=== PATIENT | male | born 1960 | race Caucasian/White ===

== ENCOUNTER 2016-05-15 10:25 | Emergency (ER) | payer MEDICARE, OTHER ==
[~2016-05-15] VITALS: Ht 177.8 cm; Wt 90.9 kg
[~2016-05-15 10:25] MED LIST: ALBUTEROL0.83 MG/ML IH; AMOXICILLIN 8751 TAB PO; ATIVAN 0.50.5 MG/TAB PO; ATIVAN0.5 MG PO; BACTRIM DS 8001 TAB PO; BUPROBAN150 MG PO; CITALOPRAM10 MG PO; CITALOPRAM40 MG PO; CLEOCIN HCL300 MG PO; DEPAKOTE DR500 MG PO; DOCUSATE100 MG PO; EC NAPROSYN500 MG PO; EFFEXOR-XR150 MG PO; FUROSEMIDE20 MG PO; GABAPENTIN400 MG PO; INDERAL 20MG20 MG PO; LEVAQUIN 5500 MG/TA1 PO; METHADONE H10 MG/TAB PO; MINIPRESS2 MG PO; NEURONTIN400 MG/CAP PO; NORCO 325 MG-51 TAB PO; OMEPRAZOLE20 MG PO; PROPRANOLOL10 MG PO; QUETIAPINE FUM100 MG PO; SEROQUEL 200MG200 MG PO; SEROQUEL400 MG PO; SIMVASTATIN20 MG PO; UNABLE; ZOCOR 40MG40 MG PO; [UNRECOGNIZED DRUG - REMARK]
[2016-05-15 10:40] VITALS: BP 124/88; TEMP 97.8
[2016-05-15 11:42] VITALS: PULSE 66
== END 2016-05-15 11:43 | disposition home or self-care (01) ==
LOC: COL.ER 10:25
DX: S92.515A Nondisplaced fracture of proximal phalanx of left lesser toe(s), initial encounter for closed fracture (principal); W22.8XXA Striking against or struck by other objects, initial encounter; Y92.003 Bedroom of unspecified non-institutional (private) residence as the place of occurrence of the external cause; I10 Essential (primary) hypertension

== ENCOUNTER 2017-01-07 07:17 | Emergency (ER) | payer MEDICARE, OTHER ==
[~2017-01-07] VITALS: Ht 177.8 cm; Wt 79.5 kg
[2017-01-07] MEDS ORDERED: DOLOPHINE HCL5 MG PO (07:36)
[2017-01-07] MEDS ORDERED: SEROQUEL 1100 MG/TAB PO (07:38)
[2017-01-07 09:05] VITALS: BP 128/80; PULSE 85; TEMP 97.7
== END 2017-01-07 09:07 | disposition home or self-care (01) ==
LOC: COL.ER 07:17
DX: R20.9 Unspecified disturbances of skin sensation (principal); G89.29 Other chronic pain; M25.552 Pain in left hip; M54.2 Cervicalgia

== ENCOUNTER → 2017-02-22 | Outpatient (CLI) | payer OTHER, MEDICARE ==
[~2017-02-22] MED LIST changes: +DOLOPHINE HCL5 MG PO; +SEROQUEL 1100 MG/TAB PO
== END ==
LOC: BHSO 13:36
DX: F43.10 Post-traumatic stress disorder, unspecified (principal)

== ENCOUNTER → 2017-03-23 | Outpatient (CLI) | payer OTHER, MEDICARE | LOC: BHSO 11:06 | DX: F43.10 Post-traumatic stress disorder, unspecified (principal) ==

== ENCOUNTER → 2017-03-30 | Outpatient (CLI) | payer OTHER, MEDICARE | LOC: BHSO 12:26 | DX: F43.10 Post-traumatic stress disorder, unspecified (principal) ==

== ENCOUNTER → 2017-04-03 | Outpatient (CLI) | payer OTHER, MEDICARE | LOC: BHSO 12:41 | DX: F43.10 Post-traumatic stress disorder, unspecified (principal) ==

== ENCOUNTER → 2017-04-13 | Outpatient (CLI) | payer OTHER, MEDICARE | LOC: BHSO 12:08 | DX: F43.10 Post-traumatic stress disorder, unspecified (principal) ==

== ENCOUNTER → 2017-05-04 | Outpatient (CLI) | payer OTHER, MEDICARE | LOC: BHSO 10:54 | DX: F43.10 Post-traumatic stress disorder, unspecified (principal) ==

== ENCOUNTER 2017-05-17 12:30 | Outpatient (RCR) | payer OTHER, MEDICARE | END 2017-05-18 14:05 | disposition home or self-care (01) | LOC: WSPT 12:30 | DX: M47.817 Spondylosis without myelopathy or radiculopathy, lumbosacral region (principal) | CPT/HCPCS: G8978-GP; G8979-GP; G8980-GP ==

== ENCOUNTER → 2017-05-18 | Outpatient (CLI) | payer OTHER, MEDICARE | LOC: BHSO 10:43 | DX: F43.10 Post-traumatic stress disorder, unspecified (principal) ==

== ENCOUNTER → 2017-06-01 | Outpatient (CLI) | payer OTHER, MEDICARE | LOC: BHSO 11:12 | DX: F43.10 Post-traumatic stress disorder, unspecified (principal) ==

== ENCOUNTER → 2017-06-15 | Outpatient (CLI) | payer OTHER, MEDICARE | LOC: BHSO 10:43 | DX: F43.10 Post-traumatic stress disorder, unspecified (principal) ==

== ENCOUNTER → 2017-06-29 | Outpatient (CLI) | payer MEDICARE, OTHER | LOC: BHSO 10:25 | DX: F43.10 Post-traumatic stress disorder, unspecified (principal) ==

== ENCOUNTER → 2017-07-13 | Outpatient (CLI) | payer MEDICARE, OTHER | LOC: BHSO 09:51 | DX: F43.10 Post-traumatic stress disorder, unspecified (principal) ==

== ENCOUNTER → 2017-08-24 | Outpatient (CLI) | payer MEDICARE, OTHER | LOC: BHSO 10:38 | DX: F43.10 Post-traumatic stress disorder, unspecified (principal) ==

== ENCOUNTER → 2017-08-31 | Emergency (ER) | payer MEDICARE, OTHER ==
[~2017-08-31] VITALS: Ht 177.8 cm; Wt 75.5 kg
[2017-08-31 17:55] VITALS: BP 143/74; PULSE 79; TEMP 98.7
== END ==
LOC: COL.ER 16:26
DX: S01.81XA Laceration without foreign body of other part of head, initial encounter (principal); S63.502A Unspecified sprain of left wrist, initial encounter; S63.92XA Sprain of unspecified part of left wrist and hand, initial encounter; F17.210 Nicotine dependence, cigarettes, uncomplicated; W10.9XXA Fall (on) (from) unspecified stairs and steps, initial encounter; X50.0XXA Overexertion from strenuous movement or load, initial encounter; Y92.009 Unspecified place in unspecified non-institutional (private) residence as the place of occurrence of the external cause

== ENCOUNTER → 2017-09-21 | Outpatient (CLI) | payer MEDICARE, OTHER | LOC: BHSO 09:23 | DX: F43.10 Post-traumatic stress disorder, unspecified (principal) ==

== ENCOUNTER → 2017-11-02 | Outpatient (CLI) | payer MEDICARE, OTHER | LOC: BHSO 10:38 | DX: F43.10 Post-traumatic stress disorder, unspecified (principal) ==

== ENCOUNTER → 2017-11-23 | Outpatient (CLI) | payer MEDICARE, OTHER | LOC: BHSO 13:47 | DX: F43.10 Post-traumatic stress disorder, unspecified (principal) ==

== ENCOUNTER → 2017-12-07 | Outpatient (CLI) | payer MEDICARE, OTHER | LOC: BHSO 12:57 | DX: F31.10 Bipolar disorder, current episode manic without psychotic features, unspecified (principal) ==

== ENCOUNTER 2018-03-01 13:03 | Emergency (ER) | payer MEDICARE, OTHER ==
[~2018-03-01] VITALS: Ht 182.9 cm; Wt 72.7 kg
[2018-03-01 13:10] VITALS: TEMP 97.4
[2018-03-01 13:46] LABS: BASO % 0.2 % (0.0-2.0); EOS # 0.1 (0.0-0.7); EOS % 1.5 % (0-4.0); GRAN # 7.2 (1.4-6.5); GRAN % 75.6 % (42.2-75.2); HEMOGLOBIN 12.2 g/dl (13.5-18.0); LYMPH % 10.2 % (20.0-51.0); MEAN CELL VOLUME 85 fl (80.0-100.0); MEAN CORPUSCULAR HEMOGLOBIN 28 pg (27.0-31.0); MEAN CORPUSCULAR HGB CONC 33 g/dl (33.0-37.0); MEAN PLATELET VOLUME 9.6 fl (7.4-10.4); MONO # 1.2 (0.1-0.6); MONO % 12.3 % (1.7-9.3); PLATELET COUNT 169 K/mm3 (130-400); RED BLOOD COUNT 4.31 M/mm3 (4.20-5.60); REDCELL DISTRIBUTION WIDTH-CV 13.1 % (11.5-14.5)
[2018-03-01 13:48] LABS: HEMATOCRIT 36.7 % (42.0-52.0)
[2018-03-01 13:56] LABS: ALANINE AMINOTRANSFERASE 31 U/L (21-72); ALBUMIN 3.9 gm/dL (3.5-5.0); ALKALINE PHOSPHATASE 69 U/L (50-136); ANION GAP 8 mmol/L (7-16); AST,SGOT 19 U/L (15-37); BILIRUBIN,TOTAL 0.6 mg/dL (0.0-1.0); BLOOD UREA NITROGEN 23 mg/dL (9-20); C-REACTIVE PROTEIN 3.7 mg/dL (0.0-0.9); CALCIUM 8.9 mg/dL (8.4-10.2); CARBON DIOXIDE 26 mmol/L (22-30); CHLORIDE 103 mmol/L (98-107); CREATININE, serum 1.18 mg/dL (0.66-1.25); GLUCOSE 99 mg/dL (74-106); POTASSIUM 4.1 mmol/L (3.4-5.0); SODIUM 137 mmol/L (137-145); TOTAL PROTEIN 7.1 gm/dL (6.4-8.2)
[2018-03-01 14:12] LABS: TROPONIN-I < 0.012 ng/mL (0.000-0.034)
[2018-03-01] MEDS ORDERED: PREDNISONE20 MG PO (14:35)
[2018-03-01] MEDS ORDERED: ZITHROMAX Z PA250 MG PO (14:35)
[2018-03-01 14:58] VITALS: BP 134/47; PULSE 71
== END 2018-03-01 15:00 | disposition home or self-care (01) ==
LOC: COL.ER 13:03
PROVIDERS: Physician Assistant
DX: J44.1 Chronic obstructive pulmonary disease with (acute) exacerbation (principal); E78.5 Hyperlipidemia, unspecified; F17.210 Nicotine dependence, cigarettes, uncomplicated; Z98.52 Vasectomy status
CPT/HCPCS: J7512

== ENCOUNTER → 2018-04-15 | Outpatient (CLI) | payer MEDICARE, OTHER ==
[~2018-04-15] MED LIST changes: +PREDNISONE20 MG PO; +ZITHROMAX Z PA250 MG PO
== END ==
LOC: BHSO 13:47
DX: F43.10 Post-traumatic stress disorder, unspecified (principal)

== ENCOUNTER → 2018-05-15 | Outpatient (CLI) | payer MEDICARE, OTHER | LOC: BHSO 09:33 | DX: F43.10 Post-traumatic stress disorder, unspecified (principal) ==

== ENCOUNTER → 2018-05-24 | Outpatient (CLI) | payer MEDICARE, OTHER | LOC: BHSO 10:02 | DX: F43.10 Post-traumatic stress disorder, unspecified (principal) ==

== ENCOUNTER → 2018-06-07 | Outpatient (CLI) | payer MEDICARE, OTHER | LOC: BHSO 09:56 | DX: F43.10 Post-traumatic stress disorder, unspecified (principal) ==

== ENCOUNTER → 2018-06-21 | Outpatient (CLI) | payer MEDICARE, OTHER | LOC: BHSO 10:00 | DX: F43.10 Post-traumatic stress disorder, unspecified (principal) ==

== ENCOUNTER → 2018-07-04 | Outpatient (CLI) | payer MEDICARE, OTHER | LOC: BHSO 11:00 | DX: F43.10 Post-traumatic stress disorder, unspecified (principal) ==

== ENCOUNTER 2018-12-11 09:15 | Outpatient (RCR) | payer OTHER | END 2018-12-15 | disposition still patient (30) | LOC: WSC | DX: M54.5 Low back pain (principal) ==

== ENCOUNTER 2019-03-10 12:53 | Emergency (ER) | payer OTHER ==
[~2019-03-10] VITALS: Ht 180.3 cm; Wt 75.0 kg
[2019-03-10] MEDS ORDERED: LIDODERM 5% PATC1 EA TP (13:47)
[2019-03-10] MEDS ORDERED: NORCO 325 MG-51 TAB PO (13:47)
[2019-03-10 14:02] VITALS: BP 115/67; PULSE 66; TEMP 98.1
== END 2019-03-10 14:28 | disposition home or self-care (01) ==
LOC: COL.ER 12:53
DX: S29.9XXA Unspecified injury of thorax, initial encounter (principal); F17.210 Nicotine dependence, cigarettes, uncomplicated; W18.39XA Other fall on same level, initial encounter; Y92.009 Unspecified place in unspecified non-institutional (private) residence as the place of occurrence of the external cause
CPT/HCPCS: A9284

== ENCOUNTER → 2019-04-24 | Outpatient (CLI) | payer MEDICARE, OTHER ==
[~2019-04-24] MED LIST changes: +LIDODERM 5% PATC1 EA TP
[2019-04-24 09:03] LABS: MAGNESIUM 2.2 mg/dL (1.6-2.3)
[2019-04-24 09:36] LABS: THYROID STIMULATING HORMONE 2.15 uIU/mL (0.465-4.680)
[2019-04-25 00:05] LABS: FOLATE (FOLIC ACID) 15.5 ng/mL (7.0-31.4)
[2019-04-25 21:19] LABS: ANA SCREEN with REFLEX Positive (Negative)
[2019-04-26 11:01] LABS: LYME DISEASE ANTIBODIES Negative (Negative)
== END ==
LOC: COL.LAB 08:18
PROVIDERS: Family Medicine
DX: E61.1 Iron deficiency (principal); G62.9 Polyneuropathy, unspecified; E55.9 Vitamin D deficiency, unspecified; R73.02 Impaired glucose tolerance (oral); E53.9 Vitamin B deficiency, unspecified; E53.1 Pyridoxine deficiency; E53.8 Deficiency of other specified B group vitamins; E61.2 Magnesium deficiency

== ENCOUNTER 2019-04-28 07:59 | Day surgery (SDC) | payer MEDICARE, OTHER ==
[2019-04-28] VITALS (12 sets, daily range): BP systolic 101–127; BP diastolic 55–87; PULSE 61–69; TEMP 97.9
[~2019-04-28] VITALS: Ht 177.8 cm; Wt 79.1 kg
[~2019-04-28 07:59] MED LIST changes: -BUPROBAN150 MG PO; -FUROSEMIDE20 MG PO; +LASIX 20MG TABL20 MG PO; -OMEPRAZOLE20 MG PO; +PRILOSEC 20MG20 MG PO; +WELLBUTRIN XL300 M1 PO
[2019-04-28 09:11] LABS: HEMATOCRIT 36.1 % (42.0-52.0); HEMOGLOBIN 11.9 g/dl (13.5-18.0); MEAN CELL VOLUME 85 fl (80.0-100.0); MEAN CORPUSCULAR HEMOGLOBIN 28 pg (27.0-31.0); MEAN CORPUSCULAR HGB CONC 33 g/dl (33.0-37.0); MEAN PLATELET VOLUME 9.8 fl (7.4-10.4); PLATELET COUNT 167 K/mm3 (130-400); RED BLOOD COUNT 4.23 M/mm3 (4.20-5.60); REDCELL DISTRIBUTION WIDTH-CV 13.6 % (11.5-14.5)
[2019-04-28 09:18] LABS: CALCIUM 9.5 mg/dL (8.4-10.2); CREATININE, serum 1.03 (0.66-1.25); POTASSIUM 4.5 mmol/L (3.4-5.0)
[2019-04-28 09:21] LABS: INR 0.9 (0.8-3.0)
[2019-04-28 09:24] LABS: PARTIAL THROMBOPLASTIN TIME 32.3 SECONDS (26.0-37.0)
[2019-04-28] MEDS ORDERED: ZYRTEC 10MG10 MG PO (09:42)
[2019-04-28] MEDS ORDERED: FLOMAX 0.40.4 MG/CAP PO (09:42)
[2019-04-28] MEDS ORDERED: COLACE 100100 MG/CAP PO (09:43)
[2019-04-28] MEDS ORDERED: MOBIC15 MG PO (09:44)
[2019-04-28] MEDS ORDERED: FLEXERIL 1010 MG/TAB PO (09:45)
--- NOTE | 2019-04-28 10:13 | NUR ---
SEE MERGE FOR MEDICATION ADMINISTRATION TIME AND INTRA AND POST SEDATION ASSESSMENTS.
--- NOTE | 2019-04-28 11:45 | NUR ---
Report taken from NICO Villanueva in [employer].
--- NOTE | 2019-04-28 11:49 | NUR ---
HAND OFF REPORT GIVEN TO NICO BRADY. DRESSING C/D/I. PT IS ALERT AND ORIENTED. AT BEDSIDE.
[2019-04-28] MEDS ORDERED: PRINIVIL5 MG PO (11:57)
--- NOTE | 2019-04-28 12:45 | NUR ---
Pt tolerated intake with no N/V.
--- NOTE | 2019-04-28 13:15 | NUR ---
Pt voided in urinal with no complications. Gmb=475 mls
--- NOTE | 2019-04-28 15:15 | NUR ---
This RN called Vesna, pt's , and left message encouraging her to return for the discharge instructions.
--- NOTE | 2019-04-28 15:45 | NUR ---
Pt up and ambulating to the bathroom with stand-by assist and cane. Pt voided again without complications.
--- NOTE | 2019-04-28 16:00 | NUR ---
Discharge instructions were reviewed with pt/spouse. Pt/spouse voice understanding. IV was discontinued with catheter tip intact, no phlebitis or infiltration. Pt was discharged via w/c to the care of spouse in private vehicle with discharge instructions in hand.
== END 2019-04-28 16:30 | disposition home or self-care (01) ==
LOC: COL.CAR 07:59
PROVIDERS: Internal Medicine Cardiovascular Disease
DX: R94.39 Abnormal result of other cardiovascular function study (principal); E78.5 Hyperlipidemia, unspecified; F32.9 Major depressive disorder, single episode, unspecified; I42.9 Cardiomyopathy, unspecified; I08.1 Rheumatic disorders of both mitral and tricuspid valves; G47.33 Obstructive sleep apnea (adult) (pediatric); J44.9 Chronic obstructive pulmonary disease, unspecified; K21.9 Gastro-esophageal reflux disease without esophagitis; M19.90 Unspecified osteoarthritis, unspecified site; G89.29 Other chronic pain; F43.10 Post-traumatic stress disorder, unspecified; Z79.51 Long term (current) use of inhaled steroids
CPT/HCPCS: C1760; C1769; C1894; J1644; J2250; J2704; J3010; J7030; Q9967

== ENCOUNTER 2019-05-26 08:37 | Outpatient (CLI) | payer MEDICARE, OTHER ==
[~2019-05-26] VITALS: Ht 177.8 cm; Wt 74.0 kg
[~2019-05-26 08:37] MED LIST changes: +COLACE 100100 MG/CAP PO; +FLEXERIL 1010 MG/TAB PO; +FLOMAX 0.40.4 MG/CAP PO; +MOBIC15 MG PO; +PRINIVIL5 MG PO; +ZYRTEC 10MG10 MG PO
[2019-05-26 09:08] VITALS: BP 109/76; PULSE 64; TEMP 97.1
[2019-05-26] MEDS ORDERED: PRINIVIL10 MG PO (09:28)
[2019-05-26] MEDS ORDERED: ASPIRIN E.C. 8181 MG PO (09:29)
[2019-05-26] MEDS ORDERED: CEPHALEXIN500 M1 PO (10:43)
--- NOTE | 2019-05-26 10:45 | NUR ---
PROCEDURE WAS COMPLETED, DRESSING OVER CENTER OF CHEST IS CLEAN AND DRY. PT HAS NO C/O, 110/61, 99% AND PULSE 66. REVIEWED WITH PT DISCHARGE INST. ON CARE OF SITE WITH STERISTRIPS, ALSO APPT FOR FOLLOWUP WOUND CHECK. PT WILL CLINICAL PHLEBOTOMIST NEW RX AT [facility] FOR KEFLEX WITH VERBAL UNDERSTANDING. PT WAS DISCHARGED AMB. WITH AND EQUIPMENT AT 1100
== END 2019-05-26 11:00 | disposition home or self-care (01) ==
LOC: COL.CAR 08:37
DX: R55 Syncope and collapse (principal); I42.9 Cardiomyopathy, unspecified; Z87.891 Personal history of nicotine dependence; I34.9 Nonrheumatic mitral valve disorder, unspecified; E78.2 Mixed hyperlipidemia

== ENCOUNTER → 2019-06-12 | Outpatient (CLI) | payer MEDICARE, OTHER ==
[~2019-06-12] MED LIST changes: +ASPIRIN E.C. 8181 MG PO; +CEPHALEXIN500 M1 PO; +PRINIVIL10 MG PO
== END ==
LOC: BHSO 08:52
DX: F43.10 Post-traumatic stress disorder, unspecified (principal)

== ENCOUNTER 2019-06-14 16:17 | Emergency (ER) | payer MEDICARE, OTHER ==
[~2019-06-14] VITALS: Ht 177.8 cm; Wt 75.0 kg
[2019-06-14 16:37] VITALS: TEMP 98.6
[2019-06-14] MEDS ORDERED: CEPHALEXIN500 M1 PO (17:19)
[2019-06-14 17:48] VITALS: PULSE 73
== END 2019-06-14 17:50 | disposition home or self-care (01) ==
LOC: COL.ER 16:17
DX: S61.432A Puncture wound without foreign body of left hand, initial encounter (principal); I10 Essential (primary) hypertension; F41.8 Other specified anxiety disorders; F17.210 Nicotine dependence, cigarettes, uncomplicated; Z79.82 Long term (current) use of aspirin; W31.82XA Contact with other commercial machinery, initial encounter; Y92.009 Unspecified place in unspecified non-institutional (private) residence as the place of occurrence of the external cause

== ENCOUNTER → 2019-07-17 | Outpatient (CLI) | payer MEDICARE, OTHER | LOC: COL.PUL 09:58 | DX: R06.02 Shortness of breath (principal) | CPT/HCPCS: J7674 ==

== ENCOUNTER → 2019-07-24 | Outpatient (CLI) | payer MEDICARE, OTHER | LOC: BHSO 11:04 | DX: F43.10 Post-traumatic stress disorder, unspecified (principal) ==

== ENCOUNTER → 2019-10-02 | Outpatient (CLI) | payer MEDICARE, OTHER | LOC: BHSO 11:00 | DX: F43.10 Post-traumatic stress disorder, unspecified (principal) ==

== ENCOUNTER → 2019-11-21 | Outpatient (CLI) | payer MEDICARE, OTHER | LOC: BHSO 13:00 | DX: F43.10 Post-traumatic stress disorder, unspecified (principal) ==

== ENCOUNTER → 2019-12-19 | Outpatient (CLI) | payer MEDICARE, OTHER | LOC: BHSO 12:55 | DX: F43.10 Post-traumatic stress disorder, unspecified (principal) ==

== ENCOUNTER → 2020-01-16 | Outpatient (CLI) | payer MEDICARE, OTHER | LOC: BHSO 12:53 | DX: F43.10 Post-traumatic stress disorder, unspecified (principal) ==

== ENCOUNTER 2020-01-28 15:34 | Outpatient (RCR) | payer MEDICARE, OTHER | END 2020-02-04 06:33 | disposition home or self-care (01) | LOC: COL.CR 15:34 | DX: Z48.812 Encounter for surgical aftercare following surgery on the circulatory system (principal); I34.0 Nonrheumatic mitral (valve) insufficiency ==

== ENCOUNTER 2020-02-19 09:00 | Outpatient (RCR) | payer MEDICARE, OTHER | END 2020-03-18 14:40 | disposition home or self-care (01) | LOC: WSC 09:00 | DX: M54.2 Cervicalgia (principal); R26.89 Other abnormalities of gait and mobility ==

== ENCOUNTER 2021-03-08 19:13 | Emergency (ER) | payer MEDICARE, OTHER ==
[~2021-03-08] VITALS: Ht 177.8 cm; Wt 86.4 kg
[2021-03-08 19:48] LABS: BASO % 0.2 % (0.0-2.0); EOS # 0.1 K/mm3 (0.0-0.7); EOS % 0.7 % (0-4.0); GRAN # 6.7 K/mm3 (1.4-6.5); GRAN % 81.2 % (42.2-75.2); HEMOGLOBIN 12.2 g/dl (13.5-18.0); LYMPH # 0.5 K/mm3 (1.2-3.4); LYMPH % 6.6 % (20.0-51.0); MEAN CELL VOLUME 89 fl (80.0-100.0); MEAN CORPUSCULAR HEMOGLOBIN 29 pg (27.0-31.0); MEAN CORPUSCULAR HGB CONC 33 g/dl (33.0-37.0); MEAN PLATELET VOLUME 10.7 fl (7.4-10.4); MONO # 0.9 K/mm3 (0.1-0.6); MONO % 10.7 % (1.7-9.3); PLATELET COUNT 172 K/mm3 (130-400); RED BLOOD COUNT 4.16 M/mm3 (4.20-5.60); REDCELL DISTRIBUTION WIDTH-CV 14.1 % (11.5-14.5)
[2021-03-08 19:49] LABS: HEMATOCRIT 36.9 % (42.0-52.0)
[2021-03-08 20:10] LABS: ALANINE AMINOTRANSFERASE 18 U/L (0-55); ALBUMIN 3.4 gm/dL (3.4-4.8); ALKALINE PHOSPHATASE 70 U/L (40-150); ANION GAP 9 mmol/L (7-16); AST,SGOT 14 U/L (5-34); BILIRUBIN,TOTAL 0.4 mg/dL (0.2-1.2); BLOOD UREA NITROGEN 20 mg/dL (8-26); CALCIUM 9.1 mg/dL (8.4-10.2); CARBON DIOXIDE 23 mmol/L (23-31); CHLORIDE 106 mmol/L (98-107); CREATININE, serum 1.04 mg/dL (0.72-1.25); GLUCOSE 105 mg/dL (70-99); POTASSIUM 4.3 mmol/L (3.5-4.5); SODIUM 138 mmol/L (136-145); TOTAL PROTEIN 6.9 gm/dL (6.2-8.1)
[2021-03-08 20:26] LABS: TSH w REFLEX 0.715 uIU/mL (0.350-4.940)
[2021-03-08 20:38] LABS: TROPONIN-I < 0.010 ng/mL (0.00-0.033)
[2021-03-08 20:50] VITALS: BP 111/62; PULSE 64; TEMP 97.8
== END 2021-03-08 20:55 | disposition home or self-care (01) ==
LOC: COL.ER 19:13
PROVIDERS: Emergency Medicine
DX: R53.81 Other malaise (principal); I10 Essential (primary) hypertension; E78.5 Hyperlipidemia, unspecified; F41.9 Anxiety disorder, unspecified; F32.A Depression, unspecified; F43.10 Post-traumatic stress disorder, unspecified; Z79.899 Other long term (current) drug therapy
CPT/HCPCS: J1885; J2405; J7030

== ENCOUNTER → 2022-09-12 | Outpatient (CLI) | payer MEDICARE, OTHER | LOC: COL.RAD 12:53 | DX: G31.9 Degenerative disease of nervous system, unspecified (principal); F02.80 Dementia in other diseases classified elsewhere, unspecified severity, without behavioral disturbance, psychotic disturbance, mood disturbance, and anxiety ==

== ENCOUNTER 2023-11-08 09:00 | Outpatient (RCR) | payer OTHER | END 2023-11-11 | disposition home or self-care (01) | LOC: WSPT | DX: R26.89 Other abnormalities of gait and mobility (principal); R53.81 Other malaise ==

== ENCOUNTER 2023-11-22 10:30 | Outpatient (RCR) | payer MEDICARE | END 2023-12-12 | disposition home or self-care (01) | LOC: WSPT | DX: R53.81 Other malaise (principal); R26.89 Other abnormalities of gait and mobility ==